=== PATIENT | male | born 2000 | race Caucasian/White ===

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

== ENCOUNTER 2019-04-13 18:19 | Emergency (ER) | payer OTHER ==
[~2019-04-13] VITALS: Ht 193 cm; Wt 93.4 kg
[2019-04-13 18:48] VITALS: Ht 193 cm; Wt 93.4 kg
[2019-04-13 20:30] LABS: AMPHETAMINE QUAL UR NONE DETECTED (See below)
[2019-04-13 21:26] VITALS: BP 117/64
== END 2019-04-13 21:26 | disposition home or self-care (01) ==
LOC: ED 18:19
PROVIDERS: Emergency Medicine
DX: R07.89 Other chest pain (principal); R06.02 Shortness of breath; J45.909 Unspecified asthma, uncomplicated; Z98.890 Other specified postprocedural states